=== PATIENT | male | born 2000 | race Caucasian/White ===

== ENCOUNTER 2023-05-11 12:49 | Observation (INO) | payer BC ==
[2023-05-11] MEDS ORDERED: diphenhydrAMINE 50 MG/ML 1 ML VIAL IVP STA (13:21)
--- NOTE | 2023-05-11 13:25 | ED ---
General Adult HPI - General Chief complaint: Skin/Abscess/Foreign Body Stated complaint: insect bite Time Seen by Provider: 05/11/23 13:10 Source: patient, RN notes reviewed Mode of arrival: ambulatory Limitations: no limitations - History of Present Illness Initial comments: Patient is a pleasant 22-year-old male presenting to the emergency department with insect bite. Patient awoke and noticed something on his right arm. Patient states that is irritated. Patient does have some swelling and redness in the area. Patient did go to urgent care and his temperature was up a little bit and they advised him to come to the emergency department. No other recent illness or other concerns. - Related Data Allergies Allergy/AdvReac Type Severity Reaction Status Date / Time No Known Allergies Allergy Verified 05/11/23 13:00 Review of Systems ROS Statement: Those systems with pertinent positive or pertinent negative responses have been documented in the HPI. ROS Other: All systems not noted in ROS Statement are negative. Constitutional: Reports: as per HPI Eyes: Denies: eye pain ENT: Denies: ear pain Respiratory: Denies: cough Cardiovascular: Denies: chest pain Endocrine: Denies: fatigue Gastrointestinal: Denies: abdominal pain Skin: Reports: as per HPI, rash Past Medical History Past Medical History: GERD/Reflux, Hypertension History of Any Multi-Drug Resistant Organisms: None Reported Past Surgical History: No Surgical Hx Reported Past Psychological History: No Psychological Hx Reported Smoking Status: Current every day smoker Past Alcohol Use History: Occasional Past Drug Use History: None Reported General Exam Limitations: no limitations General appearance: alert, in no apparent distress Head exam: Present: normocephalic Eye exam: Present: normal appearance Neck exam: Present: normal inspection Respiratory exam: Present: normal lung sounds bilaterally Cardiovascular Exam: Present: tachycardia GI/Abdominal exam: Present: soft. Absent: tenderness Extremities exam: Present: normal inspection Neurological exam: Present: alert Psychiatric exam: Present: normal affect, normal mood Skin exam: Present: erythema (Right forearm with central puncture consistent with suspected history of insect bite. There is surrounding erythema approximately 12 x 12 cm. The most proximal portion does extend 3-4 cm beyond this.) Course Vital Signs 05/11/23 12:57 Temperature 99.4 F Pulse Rate 118 H Respiratory 20 Rate Blood Pressure 161/100 O2 Sat by Pulse 100 Oximetry EKG Findings - EKG Results: EKG: interpreted by ERMD, sinus rhythm, normal axis, normal QRS, normal ST/T EKG shows: tachycardia Medical Decision Making - Medical Decision Making Was pt. sent in by a medical professional or institution (DEVI Hylton, PROMOTIONS OFFICER, urgent care, hospital, or alf...) When possible be specific @ -Patient was sent in by the office. Did you speak to anyone other than the patient for history (EMS, parent, family, police, friend...)? What history was obtained from this source @ -[No] Did you review nursing and triage notes (agree or disagree)? Why? @ -[I reviewed and agree with nursing and triage notes] Were old charts reviewed (outside hosp., previous admission, EMS record, old EKG, old radiological studies, urgent care reports/EKG's, alf records)? Report findings @ -[No old charts were reviewed] Differential Diagnosis (chest pain, altered mental status, abdominal pain women, abdominal pain men, vaginal bleeding, weakness, fever, dyspnea, syncope, headache, dizziness, GI bleed, back pain, seizure, CVA, palpatations, mental health, musculoskeletal)? @ -Differential Fever: Pneumonia, viral URI, endocarditis, myocarditis, pericarditis, otitis, sinusitis, peritonsillar Abscess, retropharyngeal Abscess, epiglottitis, peritonitis, appendicitis, Nadia cystitis, diverticulitis, hepatitis, colitis, UTI, PID, TOA, pyelonephritis, prostatitis, epididymitis, meningitis, encephalitis, pulmonary embolism, CVA, thyroid storm, pancreatitis, adrenal crisis, cavernous sinus thrombosis, this is not meant to be an all-inclusive list. EKG interpreted by me (3pts min.). @ -[As above] X-rays interpreted by me (1pt min.). @ -[None done] CT interpreted by me (1pt min.). @ -[None done] U/S interpreted by me (1pt. min.). @ -[None done] What testing was considered but not performed or refused? (CT, X-rays, U/S, labs)? Why? @ -[None] What meds were considered but not given or refused? Why? @ -[None] Did you discuss the management of the patient with other professionals (professionals i.e. DEVI Hylton, [employer] OFFICER, lab, RT, psych nurse, drug abuse social worker, bowling alley floors installer, teacher, radiological defense officer, correctional case manager)? Give summary @ -Case was discussed with Drs. Del Rio, who will admit for Dr. Bridges. Was smoking cessation discussed for >3mins.? @ -[No] Was critical care preformed (if so, how long)? @ -31 minutes of critical care time Were there social determinants of health that impacted care today? How? (Homelessness, low income, unemployed, alcoholism, drug addiction, transportation, low edu. Level, literacy, decrease access to med. care, snf, rehab)? @ -[No] Was there de-escalation of care discussed even if they declined (Discuss DNR or withdrawal of care, Hospice)? DNR status @ -[No] What co-morbidities impacted this encounter? (DM, HTN, Smoking, COPD, CAD, Cancer, CVA, ARF, Chemo, Hep., AIDS, mental health diagnosis, sleep apnea, morbid obesity)? @ -[None] Was patient admitted / discharged? Hospital course, mention meds given and route, prescriptions, significant lab abnormalities, going to OR and other pertinent info. @ -Patient reevaluated. Skin marking done with patent has not changed with Benadryl. Even though this is her early-onset there is concern for infection rather than ALLERGIC reaction secondary to elevated temperature and elevated white count and tachycardia. Admission orders written. There is concern for sepsis diagnosed at 1450. Blood culture and lactic acid and IV antibiotics about been ordered. Undiagnosed new problem with uncertain prognosis? @ -[No] Drug Therapy requiring intensive monitoring for toxicity (Heparin, Nitro, Insulin, Cardizem)? @ -[No] Were any procedures done? @ -[No] Diagnosis/symptom? @ -Cellulitis, sepsis Acute, or Chronic, or Acute on Chronic? @ -Acute, acute Uncomplicated (without systemic symptoms) or Complicated (systemic symptoms)? @ -Cellulitis, is complicated with with sepsis Side effects of treatment? @ -[No] Exacerbation, Progression, or Severe Exacerbation? @ -[No] Poses a threat to life or bodily function? How? (Chest pain, [place], [place], pneumonia, PE, COPD, DKA, ARF, appy, cholecystitis, CVA, Diverticulitis, Homicidal, Suicidal, threat to staff... and all critical care pts) @ -[No] - Lab Data Result diagrams: 05/11/23 14:08 05/11/23 14:08 Lab Results 05/11/23 05/11/23 05/11/23 Range/Units 14:08 14:08 14:08 WBC 13.4 H (3.8-10.6) k/uL RBC 5.20 (4.30-5.90) m/uL Hgb 15.6 (13.0-17.5) gm/dL Hct 44.9 (39.0-53.0) % MCV 86.2 (80.0-100.0) fL MCH 29.9 (25.0-35.0) pg MCHC 34.7 (31.0-37.0) g/dL RDW 12.0 (11.5-15.5) % Plt Count 287 (150-450) k/uL MPV 7.7 Neutrophils % 67 % Lymphocytes % 23 % Monocytes % 5 % Eosinophils % 1 % Basophils % 0 % Neutrophils # 8.9 H (1.3-7.7) k/uL Lymphocytes # 3.1 (1.0-4.8) k/uL Monocytes # 0.7 (0-1.0) k/uL Eosinophils # 0.2 (0-0.7) k/uL Basophils # 0.0 (0-0.2) k/uL Sodium 139 (137-145) mmol/L Potassium 4.0 (3.5-5.1) mmol/L Chloride 102 (98-107) mmol/L Carbon Dioxide 27 (22-30) mmol/L Anion Gap 10 mmol/L BUN 8 L (9-20) mg/dL Creatinine 0.80 (0.66-1.25) mg/dL Est GFR (CKD-EPI)AfAm >90 (>60 ml/min/1.73 sqM) Est GFR (CKD-EPI)NonAf >90 (>60 ml/min/1.73 sqM) Glucose 87 (74-99) mg/dL Plasma Lactic Acid Vic 1.7 (0.7-2.0) mmol/L Calcium 9.7 (8.4-10.2) mg/dL Total Bilirubin 0.5 (0.2-1.3) mg/dL AST 49 (17-59) U/L ALT 85 H (4-49) U/L Alkaline Phosphatase 48 (38-126) U/L Total Protein 7.9 (6.3-8.2) g/dL Albumin 4.9 (3.5-5.0) g/dL Critical Care Time Critical Care Time: Yes Total Critical Care Time: 31 Disposition Clinical Impression: Cellulitis, Sepsis Disposition: ADMITTED IP TO THIS HOSP Is patient prescribed a controlled substance at d/c from ED?: No Referrals: Isidro Lombardi MD [Primary Care Provider] - 1-2 days Time of Disposition: 14:59
[2023-05-11] MEDS ORDERED: SODIUM CHLORIDE 0.9% 1,000 ML IV SCH (13:30)
[2023-05-11 14:16] LABS: Basophils % (A) 0 %; Eosinophils # (A) 0.2 k/uL (0-0.7); Eosinophils % (A) 1 %; HCT 44.9 % (39.0-53.0); HGB 15.6 gm/dL (13.0-17.5); Lymphocytes # (A) 3.1 k/uL (1.0-4.8); Lymphocytes % (A) 23 %; MCH 29.9 pg (25.0-35.0); MCHC 34.7 g/dL (31.0-37.0); MCV 86.2 fL (80.0-100.0); Mean Platelet Volume 7.7; Monocytes # (A) 0.7 k/uL (0-1.0); Monocytes % (A) 5 %; Neutrophils # (A) 8.9 k/uL (1.3-7.7); Neutrophils % (A) 67 %; Platelet Count 287 k/uL (150-450); WBC 13.4 k/uL (3.8-10.6)
[2023-05-11 14:35] LABS: ALT 85 U/L (4-49); AST 49 U/L (17-59); African American GFR (CKD) >90 (>60 ml/min/1.73 sqM); Albumin 4.9 g/dL (3.5-5.0); Alkaline Phosphatase 48 U/L (38-126); Anion Gap 10 mmol/L; Blood Urea Nitrogen 8 mg/dL (9-20); Calcium 9.7 mg/dL (8.4-10.2); Carbon Dioxide 27 mmol/L (22-30); Chloride 102 mmol/L (98-107); Glucose 87 mg/dL (74-99); Non-African American GFR(CKD) >90 (>60 ml/min/1.73 sqM); Sodium 139 mmol/L (137-145); Total Bilirubin 0.5 mg/dL (0.2-1.3); Total Protein 7.9 g/dL (6.3-8.2)
[2023-05-11] MEDS ORDERED: ACETAMINOPHEN TAB 325 MG TAB PO PRN (15:00)
[2023-05-11] MEDS ORDERED: traMADol 50 MG TAB PO PRN (15:00)
[2023-05-11] MEDS ORDERED: NALOXONE 0.4 MG/ML 1 ML VIAL IV PRN (15:00)
[2023-05-11] MEDS ORDERED: IBUPROFEN 400 MG TAB PO PRN (15:00)
[2023-05-11] MEDS: SODIUM CHLORIDE 0.9% 1,000 ML IV SCH (15:29)
[2023-05-11] MEDS ORDERED: ONDANSETRON 4 MG/2 ML VIAL IVP PRN (18:28)
[2023-05-11] MEDS ORDERED: MELATONIN 3 MG TABLET PO PRN (18:28)
[2023-05-11] MEDS ORDERED: NICOTINE GUM (POLACRILEX) 2 MG GUM BUCCAL PRN (18:28)
[2023-05-11] MEDS ORDERED: bisacodyL 5 MG TABLET.DR PO PRN (18:28)
[2023-05-11] MEDS ORDERED: predniSONE 20 MG TAB PO STA (18:31)
--- NOTE | 2023-05-11 18:32 | P.HPIM ---
History of Present Illness H&P Date: 05/11/23 Patient is a 22-year-old male with a history of hypertension, obesity, and acid reflux who presented to the ER at the direction of urgent care after suffering a insect bite on his right arm. On arrival to the ER he was slightly tachycardic and hypertensive with a pulse of 118 and blood pressure 161/100. Laboratory analysis showed white blood cell count of 13.4 and ALT of 85. In the ER he was given a dose of Benadryl started on IV fluids and then Cefazolin and arrangements were made for observation. Patient seen and examined at bedside. He reports that he woke up today with swelling in his right arm. He did not feel anything bite him. It was slightly painful and he decided to go to urgent care. He states yesterday things were well. He did barbecue yesterday. He denies any history of recurrent skin infections. He denies any unusual exposures to the area. No gardening. He denies any fevers or chills. Vital signs reviewed General: nontoxic, no distress, appears at stated age Derm: Right upper extremity with swelling from wrist to elbow and 10 cm area of erythema with induration. Eyes: EOMI, no lid lag, anicteric sclera Cardiovascular: S1S2 reg, no murmur, positive posterior tibial pulse bilateral, no edema Lungs: clear to auscultation bilateral, no rhonchi, no rales, no wheeze, no accessory muscle use Abdominal: soft, nontender to palpation, no guarding, no appreciable organomegaly, normal bowel sounds Ext: no gross muscle atrophy, no contractures Neuro: CN II-XII grossly intact, No focal neuro deficits Psych: Alert, oriented, appropriate affect Assessment/Plan: Right upper extremity insect bite with surrounding cellulitis and sepsis - d/w ED place in observation - continue with cefazolin - prednisone 40 mg X 1 now - start doxycycline - repeat CBC in AM - Monitor for improving cellulitis HTN, accelerated GERD Nicotine dependency - protonix 40mg daily - Lisinopril-HCTZ 10-12.5 mg daily - nicotine gum 2 mg q 2 hours Obesity with BMI 38.3 - structured outpatient weight loss Imaging: per HPI Data Review: per HPI The patient is placed in observation with an anticipated less than [address] ay for evaluation of cellultis with sepsis . DVT prophylaxis: eaerly ambulation Discussed with: patient, ED provider Anticipated discharge date: in 24-[address]: home This dictation was prepared using [employer] voice recognition software. Though every attempt is made to correct errors during dictation some may still exist. Past Medical History Past Medical History: GERD/Reflux, Hypertension History of Any Multi-Drug Resistant Organisms: None Reported Past Surgical History: No Surgical Hx Reported Past Psychological History: No Psychological Hx Reported Smoking Status: Current every day smoker Past Alcohol Use History: Occasional Past Drug Use History: None Reported Medications and Allergies Home Medications Medication Instructions Recorded Confirmed Type Lisinopril-Hctz 10-12.5 mg 1 tab PO DAILY 05/11/23 05/11/23 History [Zestoretic 10-12.5] Omeprazole Magnesium [PriLOSEC OTC] 20 mg PO DAILY 05/11/23 05/11/23 History Allergies Allergy/AdvReac Type Severity Reaction Status Date / Time No Known Allergies Allergy Verified 05/11/23 13:00 Physical Exam Osteopathic Statement: *. No significant issues noted on an osteopathic structural exam other than those noted in the History and Physical/Consult. Vitals: Vital Signs Temp Pulse Resp BP Pulse Ox 05/11/23 15:27 98 18 151/89 97 05/11/23 12:57 99.4 F 118 H 20 161/100 100 Intake and Output 05/11/23 05/11/23 05/11/23 06:59 14:59 22:59 Other: Weight 104.326 kg Results CBC & Chem 7: 05/11/23 14:08 05/11/23 14:08 Labs: Abnormal Lab Results - Last 24 Hours (Table) 05/11/23 05/11/23 Range/Units 14:08 14:08 WBC 13.4 H (3.8-10.6) k/uL Neutrophils # 8.9 H (1.3-7.7) k/uL BUN 8 L (9-20) mg/dL ALT 85 H (4-49) U/L
[2023-05-11] MEDS: DOXYCYCLINE 100 MG CAP PO SCH (20:01)
[2023-05-12] MEDS: SODIUM CHLORIDE 0.9% 1,000 ML IV SCH (05:35)
[2023-05-12] MEDS ORDERED: PANTOPRAZOLE 40 MG TABLET PO SCH (07:30)
[2023-05-12 08:00] LABS: Basophils % (A) 0 %; Eosinophils # (A) 0.1 k/uL (0-0.7); Eosinophils % (A) 1 %; HCT 45.6 % (39.0-53.0); HGB 15.3 gm/dL (13.0-17.5); Lymphocytes # (A) 2.2 k/uL (1.0-4.8); Lymphocytes % (A) 16 %; MCH 29.8 pg (25.0-35.0); MCHC 33.4 g/dL (31.0-37.0); Mean Platelet Volume 7.5; Monocytes # (A) 0.5 k/uL (0-1.0); Monocytes % (A) 4 %; Neutrophils # (A) 10.1 k/uL (1.3-7.7); Neutrophils % (A) 76 %; Platelet Count 302 k/uL (150-450); RBC 5.13 m/uL (4.30-5.90); RDW 12.2 % (11.5-15.5); WBC 13.3 k/uL (3.8-10.6)
[2023-05-12 08:25] LABS: African American GFR (CKD) >90 (>60 ml/min/1.73 sqM); Anion Gap 10 mmol/L; Blood Urea Nitrogen 10 mg/dL (9-20); Calcium 9.9 mg/dL (8.4-10.2); Carbon Dioxide 22 mmol/L (22-30); Chloride 106 mmol/L (98-107); Glucose 100 mg/dL (74-99); Non-African American GFR(CKD) >90 (>60 ml/min/1.73 sqM); Potassium 4.3 mmol/L (3.5-5.1); Sodium 138 mmol/L (137-145)
[2023-05-12] MEDS ORDERED: LISINOPRIL-HCTZ 10-12.5 MG 1 EACH TAB PO SCH (09:00)
[2023-05-12] MEDS: DOXYCYCLINE 100 MG CAP PO SCH (09:00)
[2023-05-12 09:08] VITALS: BP 149/92; PULSE 87; RESP 14; TEMP 98.3
[2023-05-12] MEDS ORDERED: predniSONE 20 MG TAB PO STA (10:42)
--- NOTE | 2023-05-12 11:42 | P.DS ---
Providers Date of admission: 05/11/23 15:00 Expected date of discharge: 05/12/23 Attending physician: Nicole Reyes DO Primary care physician: Heath Lombardi [facility] Course: Discharge Diagnosis: Right upper extremity insect bite with surrounding cellulitis and sepsis HTN, accelerated GERD Nicotine dependency Obesity with BMI 38.3 Hospital Course: Patient is a 22-year-old male with a history of hypertension, obesity, and acid reflux who presented to the ER at the direction of urgent care after suffering a insect bite on his right arm. On arrival to the ER he was slightly tachycardic and hypertensive with a pulse of 118 and blood pressure 161/100. Laboratory analysis showed white blood cell count of 13.4 and ALT of 85. In the ER he was given a dose of Benadryl started on IV fluids and then Cefazolin and arrangements were made for observation. He was given a dose of prednisone and was started on doxycyline. He was monitored overnight and he remained afebrile the redness and edema improved. He was determined stable for discharge. Follow-up: Doxycycline and Augment for 6 additional days.Follow-up with Dr. Montoya. Patient seen and examined at bedside. Arm is feeling better, wants to go home. Vital signs reviewed and stable. General: nontoxic, no distress, appears at stated age Derm: Redness on right upper extremity is decreased in size with less edema. Cardiovascular: S1S2 reg, no murmur, positive posterior tibial pulse bilateral, Lungs: CTA bilateral, no rhonchi, no rales , no accessory muscle use Psych: Alert, oriented, appropriate affect A total of 28 minutes of time were spent preparing this complex discharge summary. Patient was discharged on 05/09/23. This dictation was prepared using [employer] voice recognition software. Though every attempt is made to correct errors during dictation some may still exist. Plan - Discharge Summary New Discharge Prescriptions: New Doxycycline [Vibramycin] 100 mg PO BID #12 cap Amoxic-Pot Clav 875-125Mg [Augmentin 875-125] 1 tab PO Q12HR 12 Days #6 tab Continue Omeprazole Magnesium [PriLOSEC OTC] 20 mg PO DAILY Lisinopril-Hctz 10-12.5 mg [Zestoretic 10-12.5] 1 tab PO DAILY Discharge Medication List Lisinopril-Hctz 10-12.5 mg [Zestoretic 10-12.5] 1 tab PO DAILY 05/11/23 [History] Omeprazole Magnesium [PriLOSEC OTC] 20 mg PO DAILY 05/11/23 [History] Amoxic-Pot Clav 875-125Mg [Augmentin 875-125] 1 tab PO Q12HR 12 Days #6 tab 05/12/23 [Rx] Doxycycline [Vibramycin] 100 mg PO BID #12 cap 05/12/23 [Rx] Follow up Appointment(s)/Referral(s): Isidro Lombardi MD [Primary Care Provider] - 1-2 days Patient Instructions/Handouts: Cellulitis (GEN) Activity/Diet/Wound Care/Special Instructions: Activity: As tolerated Diet: Heart Healthy Wound Care: Keep clean with soap and water, use lotion without perfumes and dyes Special Instructions: Return if: swelling and redness increase, or if your develop a fever greater than 100.4 Discharge Disposition: HOME SELF-CARE
== END 2023-05-12 11:40 | disposition home or self-care (01) ==
LOC: EC 12:49 → 6NMEDSUR 15:00
PROVIDERS: ADMIT Internal Medicine; ATTEND Internal Medicine
DX: A41.9 Sepsis, unspecified organism (principal); S40.861A Insect bite (nonvenomous) of right upper arm, initial encounter; W57.XXXA Bitten or stung by nonvenomous insect and other nonvenomous arthropods, initial encounter; L03.113 Cellulitis of right upper limb; I10 Essential (primary) hypertension; K21.9 Gastro-esophageal reflux disease without esophagitis; F17.200 Nicotine dependence, unspecified, uncomplicated; E66.9 Obesity, unspecified; Z68.38 Body mass index [BMI] 38.0-38.9, adult
CPT/HCPCS: 96366 ×3; 96365; 96375; 99291; 36415; 93005; 80053; 80048; 83605; 85025 ×2; 87040; G0378 ×2; J1200; J0690 ×2; J7512 ×2

== ENCOUNTER 2025-03-12 09:18 | Emergency (ER) | payer BC ==
[2025-03-12 09:21] VITALS: TEMP 98
--- NOTE | 2025-03-12 10:37 | ED ---
General Adult HPI - General Chief complaint: Abdominal Pain Stated complaint: Stomach pain Time Seen by Provider: 03/12/25 09:30 Source: patient, RN notes reviewed Mode of arrival: ambulatory Limitations: no limitations - History of Present Illness Initial comments: 24-year male with history of GERD presenting to emergency department complaints of epigastric and left upper quadrant abdominal pain that started this morning when he woke up. He states that the pain is described as a tightness type a sensation that was nonradiating. He had associated diaphoresis and felt "shaky ". He endorses nausea with no reported emesis. He states that since he has been in the emergency department the pain has substantially subsided and at this time is not present. He denies diarrhea, constipation, urinary complaints. Previous appendectomy. Admits to frequent marijuana use. Denies alcohol use. - Related Data Home Medications Medication Instructions Recorded Confirmed Lisinopril-Hctz 10-12.5 mg 1 tab PO DAILY 05/11/23 05/11/23 [Zestoretic 10-12.5] Omeprazole Magnesium [PriLOSEC OTC] 20 mg PO DAILY 05/11/23 05/11/23 Previous Rx's Medication Instructions Recorded Amoxic-Pot Clav 875-125Mg 1 tab PO Q12HR 12 Days #6 tab 05/12/23 [Augmentin 875-125] Doxycycline [Vibramycin] 100 mg PO BID #12 cap 05/12/23 Allergies Allergy/AdvReac Type Severity Reaction Status Date / Time No Known Allergies Allergy Verified 03/12/25 09:21 Review of Systems ROS Statement: Those systems with pertinent positive or pertinent negative responses have been documented in the HPI. ROS Other: All systems not noted in ROS Statement are negative. Past Medical History Past Medical History: GERD/Reflux, Hypertension History of Any Multi-Drug Resistant Organisms: None Reported Past Surgical History: No Surgical Hx Reported Past Anesthesia/Blood Transfusion Reactions: No Reported Reaction Past Psychological History: No Psychological Hx Reported Smoking Status: Current every day smoker, Vaper Past Alcohol Use History: Occasional Past Drug Use History: Marijuana General Exam Limitations: no limitations General appearance: alert, in no apparent distress ENT exam: Present: normal exam, mucous membranes moist Neck exam: Present: normal inspection. Absent: tenderness, meningismus, lymphadenopathy Respiratory exam: Present: normal lung sounds bilaterally. Absent: respiratory distress, wheezes, rales, rhonchi, stridor Cardiovascular Exam: Present: regular rate, normal rhythm, normal heart sounds. Absent: systolic murmur, diastolic murmur, rubs, gallop, clicks GI/Abdominal exam: Present: soft, normal bowel sounds. Absent: distended, tenderness, guarding, rebound, rigid Back exam: Present: normal inspection. Absent: CVA tenderness (R), CVA tenderness (L) Course Vital Signs 03/12/25 03/12/25 09:19 13:27 Temperature 98 F Pulse Rate 78 67 Respiratory 20 18 Rate Blood Pressure 149/99 156/89 O2 Sat by Pulse 99 99 Oximetry Medical Decision Making - Medical Decision Making Was pt. sent in by a medical professional or institution (, PA, HYDRAULIC BOOM OPERATOR, urgent care, hospital, or intermediate...) When possible be specific @ -No Did you speak to anyone other than the patient for history (EMS, parent, family, police, friend...)? What history was obtained from this source @ -No Did you review nursing and triage notes (agree or disagree)? Why? @ -I reviewed and agree with nursing and triage notes Were old charts reviewed (outside hosp., previous admission, EMS record, old EKG, old radiological studies, urgent care reports/EKG's, intermediate records)? Report findings @ -No old charts were reviewed Differential Diagnosis (chest pain, altered mental status, abdominal pain women, abdominal pain men, vaginal bleeding, weakness, fever, dyspnea, syncope, headache, dizziness, GI bleed, back pain, seizure, CVA, palpatations, mental health, musculoskeletal)? @ -Differential Abdominal Pain Men: Appendicitis, cholecystitis, diverticulosis, ischemic bowel, pancreatitis, hepatitis, UTI, gastroenteritis, AAA, incarcerated hernia, bowel obstruction, constipation, inflammatory bowel, hepatitis, peptic ulcer disease, splenic infarction, perforated viscus, testicular torsion, this is not meant to be an all-inclusive list EKG interpreted by me (3pts min.). @ -None X-rays interpreted by me (1pt min.). @ -None done CT interpreted by me (1pt min.). @ -None done U/S interpreted by me (1pt. min.). @ -Ultrasound imaging of the gallbladder reveals no evidence for acute process, hepatic steatosis with focal fatty sparing next to the gallbladder fossa. What testing was considered but not performed or refused? (CT, X-rays, U/S, labs)? Why? @ -None What meds were considered but not given or refused? Why? @ -None Did you discuss the management of the patient with other professionals (professionals i.e. , PA, HYDRAULIC BOOM OPERATOR, lab, RT, psych nurse, professor of social work, fisher clam, teacher, returning officer, onsite case manager)? Give summary @ -No Was smoking cessation discussed for >3mins.? @ -No Was critical care preformed (if so, how long)? @ -No Were there social determinants of health that impacted care today? How? (Homelessness, low income, unemployed, alcoholism, drug addiction, transportation, low edu. Level, literacy, decrease access to med. care, correction, rehab)? @ -No Was there de-escalation of care discussed even if they declined (Discuss DNR or withdrawal of care, Hospice)? DNR status @ -No What co-morbidities impacted this encounter? (DM, HTN, Smoking, COPD, CAD, Cancer, CVA, ARF, Chemo, Hep., AIDS, mental health diagnosis, sleep apnea, morbid obesity)? @ -None Was patient admitted / discharged? Hospital course, mention meds given and route, prescriptions, significant lab abnormalities, going to OR and other pertinent info. @ -Discharge. 24-year-old male presenting to the emergency room with complaints of epigastric left upper quadrant abdominal pain. On examination patient is well-appearing in no signs of distress and abdominal examinations unremarkable. Patient states that since he has been in the emergency department his pain has not returned. He was offered pain medication however was declined. Laboratory testing reveals elevated lipase of 1203. Urinalysis no signs of infection. Leukocytosis 12.5. Ultrasound no evidence for acute process, hepatic steatosis. Patient was strongly urged admission for acute pancreatitis with a lipase of 1203 however patient has declined stating that he feels well and is not having abdominal pain and would like to go home at this time. Again patient was strongly urged to be admitted to the hospital however he was declined. He is recommended to return back to the emergency department if any new or worsening symptoms and to follow-up with primary care provider for further evaluation. Case discussed with my attending Dr. Cantrell Undiagnosed new problem with uncertain prognosis? @ -No Drug Therapy requiring intensive monitoring for toxicity (Heparin, Nitro, Insulin, Cardizem)? @ -No Were any procedures done? @ -No Diagnosis/symptom? @ -Pancreatitis Acute, or Chronic, or Acute on Chronic? @ -acute Uncomplicated (without systemic symptoms) or Complicated (systemic symptoms)? @ -Uncomplicated Side effects of treatment? @ -No Exacerbation, Progression, or Severe Exacerbation? @ -No Poses a threat to life or bodily function? How? (Chest pain, USA, NM, pneumonia, PE, COPD, DKA, ARF, appy, cholecystitis, CVA, Diverticulitis, Homicidal, Suicidal, threat to staff... and all critical care pts) @ -No - Lab Data Result diagrams: 03/12/25 12:13 03/12/25 12:13 Lab Results 03/12/25 03/12/25 03/12/25 Range/Units 12:13 12:13 12:34 WBC 12.50 H (4.50-10.00) 10*3/uL RBC 5.42 (4.40-5.60) 10*6/uL Hgb 16.4 (13.0-17.0) g/dL Hct 46.8 (39.6-50.0) % MCV 86.3 (80.0-97.0) fL MCH 30.3 (27.0-32.0) pg MCHC 35.0 (32.0-37.0) g/dL Plt Count 295 (140-440) 10*3/uL MPV 10.3 (9.5-12.2) fL Immature Gran % (Auto) 0.6 % Neutrophils % 70.1 % Lymphocytes % 21.7 % Monocytes % 5.8 % Eosinophils % 1.3 % Basophils % 0.5 % Immature Gran # 0.07 H (0.00-0.04) 10*3/uL Neutrophils # 8.78 H (1.80-7.70) 10*3/uL Lymphocytes # 2.71 (0.90-5.00) 10*3/uL Monocytes # 0.72 (0.20-1.00) 10*3/uL Eosinophils # 0.16 (0.04-0.35) 10*3/uL Basophils # 0.06 (0.00-0.10) 10*3/uL Sodium 141 (137-145) mmol/L Potassium 4.4 (3.5-5.1) mmol/L Chloride 100 (98-107) mmol/L Carbon Dioxide 30 (22-30) mmol/L Anion Gap 11 mmol/L BUN 5 L (9-20) mg/dL Creatinine 0.70 (0.66-1.25) mg/dL Est GFR (CKD-EPI)AfAm >90 (>60 ml/min/1.73 sqM) Est GFR (CKD-EPI)NonAf >90 (>60 ml/min/1.73 sqM) Glucose 98 (74-99) mg/dL Calcium 10.2 (8.4-10.2) mg/dL Total Bilirubin 0.6 (0.2-1.3) mg/dL AST 35 (17-59) U/L ALT 62 H (4-49) U/L Alkaline Phosphatase 50 (38-126) U/L Total Protein 7.9 (6.3-8.2) g/dL Albumin 5.1 H (3.5-5.0) g/dL Lipase 1203 H (23-300) U/L Urine Color Light Yellow Urine Appearance Clear (Clear) Urine pH 6.0 (5.0-8.0) Ur Specific [place] 1.013 (1.001-1.035) Urine Protein Negative (Negative) Urine Glucose (UA) Negative (Negative) Urine Ketones Negative (Negative) Urine Blood Negative (Negative) Urine Nitrite Negative (Negative) Urine Bilirubin Negative (Negative) Urine Urobilinogen <2.0 (<2.0) mg/dL Ur Leukocyte Esterase Negative (Negative) Disposition Clinical Impression: Pancreatitis Disposition: HOME SELF-CARE Condition: Stable Instructions (If sedation given, give patient instructions): Pancreatitis (ED) Additional Instructions: Please return to the Emergency Department if symptoms worsen or any other concerns. Is patient prescribed a controlled substance at d/c from ED?: No Referrals: Isidro Lombardi MD [Primary Care Provider] - 1-2 days Time of Disposition: 13:11
--- NOTE | 2025-03-12 11:25 | US ---
EXAMINATION TYPE: US gallbladder DATE OF EXAM: 03/12/2025 COMPARISON: NONE CLINICAL INDICATION: Male, 24 years old with history of epigatric and LUQ ab pain, nausea; TECHNIQUE: Grayscale and color Doppler imaging of the right upper quadrant was performed. FINDINGS: EXAM MEASUREMENTS: Liver Length: 16.1 cm Gallbladder Wall: 0.2 cm CBD: 0.3 cm Right Kidney: 11.6 x 5.1 x 5.6 cm TEACHER [place] NOTES: Pancreas: Tail obscured by overlying bowel gas Liver: increased echogenicity. Focal fat sparing seen adjacent to gallbladder Gallbladder: No stones seen Evidence for sonographic Mcgarry's sign: no CBD: wnl Right Kidney: wnl IMPRESSION: 1. No evidence for acute process. 2. Hepatic steatosis focal fatty sparing next gallbladder fossa. [facility], , 03/12/2025 11:22 AM
[2025-03-12 12:32] LABS: Basophils # (A) 0.06 10*3/uL (0.00-0.10); Basophils % (A) 0.5 %; Eosinophils # (A) 0.16 10*3/uL (0.04-0.35); Eosinophils % (A) 1.3 %; HCT 46.8 % (39.6-50.0); HGB 16.4 g/dL (13.0-17.0); Lymphocytes # (A) 2.71 10*3/uL (0.90-5.00); Lymphocytes % (A) 21.7 %; MCH 30.3 pg (27.0-32.0); MCHC 35.0 g/dL (32.0-37.0); MCV 86.3 fL (80.0-97.0); Monocytes # (A) 0.72 10*3/uL (0.20-1.00); Monocytes % (A) 5.8 %; Neutrophils # (A) 8.78 10*3/uL (1.80-7.70); Neutrophils % (A) 70.1 %; Platelet Count 295 10*3/uL (140-440); RBC 5.42 10*6/uL (4.40-5.60); RDW 11.7 % (11.5-14.5); WBC 12.50 10*3/uL (4.50-10.00)
[2025-03-12 12:54] LABS: ALT 62 U/L (4-49); AST 35 U/L (17-59); African American GFR (CKD) >90 (>60 ml/min/1.73 sqM); Albumin 5.1 g/dL (3.5-5.0); Alkaline Phosphatase 50 U/L (38-126); Anion Gap 11 mmol/L; Blood Urea Nitrogen 5 mg/dL (9-20); Calcium 10.2 mg/dL (8.4-10.2); Carbon Dioxide 30 mmol/L (22-30); Chloride 100 mmol/L (98-107); Glucose 98 mg/dL (74-99); Lipase 1203 U/L (23-300); Non-African American GFR(CKD) >90 (>60 ml/min/1.73 sqM); Potassium 4.4 mmol/L (3.5-5.1); Sodium 141 mmol/L (137-145); Total Protein 7.9 g/dL (6.3-8.2)
[2025-03-12 12:55] LABS: Bilirubin,Urine Negative (Negative); Blood,Urine Negative (Negative); Color,Urine Light Yellow; Glucose,Urine (UA) Negative (Negative); Ketones,Urine Negative (Negative); Leukocyte Esterase,Urine Negative (Negative); Nitrite,Urine Negative (Negative); PH, Urine 6.0 (5.0-8.0); Protein,Urine Negative (Negative); Specific Gravity,Urine 1.013 (1.001-1.035); Urobilinogen,Urine <2.0 mg/dL (<2.0)
[2025-03-12 13:29] VITALS: BP 156/89; PULSE 67; RESP 18
== END 2025-03-12 13:29 | disposition home or self-care (01) ==
LOC: EC 09:18
DX: K85.90 Acute pancreatitis without necrosis or infection, unspecified (principal); F17.290 Nicotine dependence, other tobacco product, uncomplicated
CPT/HCPCS: 36415; 76705; 80053; 81003; 83690; 85025; 99284